=== PATIENT | male | born 1975 | race Two or more races ===

== ENCOUNTER 2021-11-03 14:40 | Emergency (ER) | payer OTHER ==
[~2021-11-03] VITALS: Ht 170.2 cm; Wt 60.8 kg
[2021-11-03 15:09] VITALS: BP 112/72
--- NOTE | 2021-11-03 15:28 | NUR ---
46 y/o male, c/o right forearm lac after bumper fell on left forearm today, bleeding controlled at this time. states pain is 7/10. a&ox4, [facility] speaking, ambulates with steady gait. skin pink/warm/dry. lung sounds clear bl, heart sounds even and regular. pmh: denies nka med: denies
--- NOTE | 2021-11-03 15:35 | NUR ---
PATIENT AMBULATED TO BED 12.
[2021-11-03] MEDS ORDERED: LIDOCAINE 2% 1000 MG/50 ML VIAL INJ ONE (15:55)
[2021-11-03] MEDS ORDERED: CEPH-588 PO (16:44)
[2021-11-03] MEDS ORDERED: IBUP-1842 PO (16:44)
--- NOTE | 2021-11-03 16:59 | NUR ---
DRESSED WOUND ON PTS RIGHT FOREARM USING NON-ADHERENT PAD AND SECURING 3 INCH ROLLER GAUZE . +CMS BEFORE/AFTER. PT DID NOT COMPLAIN OF ANY PAIN OR DISCOMFORT DUE TO THE DRESSING. ER PA NOTIFIED.
--- NOTE | 2021-11-03 17:19 | NUR ---
Patient discharged with v/s stable. Written and verbal after care instructions given and explained. Patient alert, oriented and verbalized understanding of instructions. Ambulatory with steady gait. All questions addressed prior to discharge. ID band removed. Patient advised to follow up with PMD. Rx of cephalexin, ibuprofen (sent) given. Patient educated on indication of medication including possible reaction and side effects. Opportunity to ask questions provided and answered. work note given
[2021-11-03 17:20] VITALS: BP 112/72
== END 2021-11-03 17:19 | disposition home or self-care (01) ==
LOC: MED 14:40
DX: S51.811A Laceration without foreign body of right forearm, initial encounter (principal); Z79.1 Long term (current) use of non-steroidal anti-inflammatories (NSAID); Z79.2 Long term (current) use of antibiotics; W20.8XXA Other cause of strike by thrown, projected or falling object, initial encounter; Y93.89 Activity, other specified; Y92.89 Other specified places as the place of occurrence of the external cause; Y99.0 Civilian activity done for income or pay
CPT/HCPCS: 12001; 90471; 90715; 99283; J2001

== ENCOUNTER 2021-11-05 12:44 | Emergency (ER) | payer OTHER ==
[~2021-11-05] VITALS: Ht 165.1 cm; Wt 61.7 kg
[~2021-11-05 12:44] MED LIST: CEPH-588 PO; IBUP-1842 PO
[2021-11-05 12:59] VITALS: BP 124/65
--- NOTE | 2021-11-05 13:03 | NUR ---
PT TO ANA CRISTINA DIAZ
--- NOTE | 2021-11-05 13:50 | NUR ---
NON ADHERENT AND CHRISTOPHE WRAP PLACED ON PT R FOREARM.
--- NOTE | 2021-11-05 13:50 | NUR ---
NO NURSING INTERVENTIONS GIVEN. NO NEED FOR COMPLETE
[2021-11-05] MEDS ORDERED: BACITRACIN OINT 500 UNITS/GM PKT TP ONE ×2 (13:57→14:00)
--- NOTE | 2021-11-05 14:00 | NUR ---
Patient discharged with v/s stable. Written and verbal after care instructions given and explained. Patient verbalized understanding. Ambulatory with steady gait. All questions addressed prior to discharge. Advised to follow up with PMD.
== END 2021-11-05 14:00 | disposition home or self-care (01) ==
LOC: MED 12:44
DX: S51.811D Laceration without foreign body of right forearm, subsequent encounter (principal); Z79.1 Long term (current) use of non-steroidal anti-inflammatories (NSAID); Z79.2 Long term (current) use of antibiotics; X58.XXXD Exposure to other specified factors, subsequent encounter
CPT/HCPCS: 99282

== ENCOUNTER 2021-11-10 09:38 | Emergency (ER) | payer OTHER ==
[~2021-11-10] VITALS: Ht 162.6 cm; Wt 60.3 kg
[2021-11-10 09:54] VITALS: BP 121/63
--- NOTE | 2021-11-10 10:17 | NUR ---
46/M BIB SELF FOR SUTURE REMOVAL, REPORTS GETTING SUTURES TO R FOREARM ONE WEEK AGO AND WAS TOLD TO RETURN TODAY FOR REMOVAL. DENIES PAIN OR SIGNS OF INFECTION. PMH: DENIES NKA
[2021-11-10 10:56] VITALS: BP 115/60
== END 2021-11-10 10:57 | disposition home or self-care (01) ==
LOC: MED 09:38
DX: S51.811D Laceration without foreign body of right forearm, subsequent encounter (principal); I10 Essential (primary) hypertension; Z48.02 Encounter for removal of sutures; X58.XXXD Exposure to other specified factors, subsequent encounter
CPT/HCPCS: 99281